=== PATIENT | female | born 1950 | race Caucasian/White ===

== ENCOUNTER 2019-05-23 19:15 | Observation (INO) ==
[2019-05-23] MEDS ORDERED: MORPHINE 4 MG/1 ML VIAL IV ONE (22:59)
[2019-05-23] MEDS ORDERED: diphenhydrAMINE CAP 25 MG CAPSULE PO PRN (23:25)
[2019-05-23] MEDS ORDERED: guaiFENesin/DM ER 600-30 MG TABLET PO PRN (23:25)
[2019-05-23] MEDS ORDERED: ONDANSETRON 4 MG/2 ML VIAL IV PRN (23:25)
[2019-05-23] MEDS ORDERED: ALBUTEROL/IPRATROPIUM 3 ML NEB RESP TX PRN (23:25)
[2019-05-23] MEDS ORDERED: NICOTINE 21 MG/24 HR PATCH TRANSDERM PRN (23:25)
[2019-05-23] MEDS ORDERED: ACETAMINOPHEN 325 MG TABLET PO PRN (23:25)
[2019-05-23] MEDS ORDERED: metOLazone 5 MG TABLET PO ONE (23:28)
[2019-05-23 23:52] LABS: Basophils % 0.4 % (0.0-0.8); Eosinophils # 0.1 10*3/uL (0.0-0.87); Eosinophils % 1.7 % (0.00-10.9); Hematocrit 34.7 VOL% (35.7-47.0); Hemoglobin 10.9 GM/DL (12.0-16.0); Immature Granulocytes % 0.5 %; Immature Granulocytes Absolute 0.04 #; Lymphocytes # 0.9 10*3/uL (1.4-4.0); Lymphocytes % 10.9 % (21.3-54.2); Mean Corpuscular HGB Conc 31.4 GM/DL (32-36); Mean Corpuscular Volume 92.5 FL (87-102); Mean Platelet Volume 11.4 FL (9.6-12.0); Monocytes % 6.4 % (1.7-12.7); Neutrophils % 80.1 % (38.7-73.9); Platelet Count 117 T/CUMM (130-400); Red Blood Count 3.75 MC/CUMM (3.8-5.5); Red Cell Distribution Width 14.4 % (9.3-17.3); White Blood Count 8.3 T/CUMM (4-12)
[2019-05-24 00:02] LABS: INR 1.2; PT Patient Result 12.6 SECS (9.6-12.2); Partial Thromboplastin Time 27.8 SECS (20.8-36.0)
[2019-05-24] MEDS ORDERED: FUROSEMIDE 40 MG/4 ML VIAL IV ONE (00:04)
[2019-05-24 00:14] LABS: Albumin 3.6 G/DL (3.4-5.0); Bilirubin,Total 0.5 MG/DL (0.2-1.0); Calcium 7.7 MG/DL (8.5-10.1); Osmolality,Calculated 286.8 MOS/KG (273-304); Risk Ratio 3.03; Total Protein 6.6 G/DL (6.4-8.3); VLDL CHOLESTEROL 21.4 MG/DL
[2019-05-24] MEDS ORDERED: DEXTROSE 50% 25 GM/50 ML VIAL IV PRN (00:29)
[2019-05-24] MEDS ORDERED: GLUCAGON 1 MG VIAL IM PRN (00:29)
[2019-05-24] MEDS: MORPHINE 4 MG/1 ML VIAL IV PRN ×3 (01:22→10:15)
[2019-05-24 04:32] LABS: INR 1.1; PT Patient Result 12.4 SECS (9.6-12.2)
[2019-05-24 08:15] LABS: Apearance,Urine Cloudy (Clear); Bacteria,Urine Few /HPF (Few); Bilirubin,Urine Negative (Negative); Blood, Urine NEGATIVE (Negative); Glucose,Urine (UA) 500 mg/dL (Negative); Ketones,Urine Negative (Negative); Nitrite,Urine Negative (Negative); Protein,Urine >=500 MG/DL; RBC,Urine 13 /HPF (0-4); Squamous Epithelial Cell,Urine Many /HPF (0-10); Urine Color Yellow (Yellow); WBC,Urine 51 /HPF (0-6)
[2019-05-24 08:16] LABS: Urine Urobilinogen 0.2 EU/DL (0.2-1.0)
[2019-05-24] MEDS ORDERED: Ferric Citrate [Auryxia] 210 MG PO SCH (09:00)
[2019-05-24] MEDS ORDERED: glipiZIDE 10 MG TABLET PO SCH (09:00)
[2019-05-24] MEDS: INSULIN LISPRO 100 UNIT/ML SUBCUT SCH ×3 (13:28→21:36)
[2019-05-24] MEDS: carvediloL 25 MG TABLET PO SCH ×2 (13:29→16:41)
[2019-05-24] MEDS: ASPIRIN EC 81 MG TABLET PO SCH (15:23)
[2019-05-24] MEDS: CITALOPRAM 20 MG TABLET PO SCH (15:23)
[2019-05-24] MEDS: WARFARIN 5 MG TABLET PO SCH (15:24)
[2019-05-24] MEDS: amLODIPine 10 MG TABLET PO SCH (15:24)
[2019-05-24] MEDS: LOSARTAN 50 MG TABLET PO SCH (15:25)
[2019-05-24] MEDS: NYSTATIN CREAM 15 GM TUBE TOP SCH ×2 (15:27→21:32)
[2019-05-24] MEDS ORDERED: SIMVASTATIN 40 MG TABLET PO SCH (21:00)
[2019-05-24] MEDS: CIPROFLOXACIN 250 MG TABLET PO SCH (21:32)
[2019-05-25] MEDS: INSULIN LISPRO 100 UNIT/ML SUBCUT SCH ×3 (08:34→17:05)
[2019-05-25] MEDS: carvediloL 25 MG TABLET PO SCH ×2 (09:38→17:06)
[2019-05-25] MEDS: CITALOPRAM 20 MG TABLET PO SCH (09:39)
[2019-05-25] MEDS: amLODIPine 10 MG TABLET PO SCH (09:39)
[2019-05-25] MEDS: LOSARTAN 50 MG TABLET PO SCH (09:39)
[2019-05-25] MEDS: ASPIRIN EC 81 MG TABLET PO SCH (09:39)
[2019-05-25] MEDS: WARFARIN 5 MG TABLET PO SCH (09:39)
[2019-05-25] MEDS: NYSTATIN CREAM 15 GM TUBE TOP SCH (09:56)
[2019-05-25 16:09] VITALS: BP 135/74
[2019-05-25] MEDS: CIPROFLOXACIN 250 MG TABLET PO SCH (17:05)
== END 2019-05-25 17:26 | disposition home or self-care (01) ==
LOC: N.TELEN
PROVIDERS: ADMIT Internal Medicine; ATTEND Emergency Medicine

== ENCOUNTER 2019-08-24 12:13 | Inpatient (IN) ==
[2019-08-24 13:20] LABS: Basophils % 0.5 % (0.0-0.8); Eosinophils # 0.1 10*3/uL (0.0-0.87); Hematocrit 33.8 VOL% (35.7-47.0); Hemoglobin 11.1 GM/DL (12.0-16.0); Immature Granulocytes Absolute 0.08 #; Lymphocytes # 0.4 10*3/uL (1.4-4.0); Lymphocytes % 5.3 % (21.3-54.2); Mean Corpuscular HGB Conc 32.8 GM/DL (32-36); Mean Corpuscular Volume 93.9 FL (87-102); Mean Platelet Volume 10.5 FL (9.6-12.0); Neutrophils % 80.2 % (38.7-73.9); Platelet Count 127 T/CUMM (130-400); Red Cell Distribution Width 15.4 % (9.3-17.3); White Blood Count 7.8 T/CUMM (4-12)
[2019-08-24 13:30] LABS: INR 1.5; PT Patient Result 15.9 SECS (9.6-12.2); Partial Thromboplastin Time 31.3 SECS (20.8-36.0)
[2019-08-24 13:41] LABS: Albumin 3.4 G/DL (3.4-5.0); Bilirubin,Total 0.5 MG/DL (0.2-1.0); Calcium 8.4 MG/DL (8.5-10.1); Osmolality,Calculated 280.7 MOS/KG (273-304); Total Protein 7.1 G/DL (6.4-8.3)
[2019-08-24] MEDS ORDERED: cefTRIAXone 1,000 MG in SODIUM CHLORIDE 0.9% 100 ML IV STA (14:19)
[2019-08-24] MEDS ORDERED: GLUCAGON 1 MG VIAL IM PRN (15:25)
[2019-08-24] MEDS ORDERED: DEXTROSE 50% 25 GM/50 ML VIAL IV PRN (15:25)
[2019-08-24] MEDS ORDERED: BISACODYL 5 MG TABLET PO PRN (15:25)
[2019-08-24] MEDS ORDERED: guaiFENesin/DM ER 600-30 MG TABLET PO PRN (15:25)
[2019-08-24] MEDS ORDERED: BENZONATATE 100 MG CAPSULE PO PRN (15:30)
[2019-08-24] MEDS ORDERED: HEPARIN 5,000 UNIT/1 ML VIAL SUBCUT SCH (15:30)
[2019-08-24] MEDS ORDERED: ALBUTEROL 2.5 MG/3 ML NEB RESP TX PRN (15:40)
[2019-08-24] MEDS: ACETAMINOPHEN 325 MG TABLET PO PRN (16:24)
[2019-08-24] MEDS ORDERED: cefTRIAXone 1,000 MG in SYRINGE 1 EACH IV SCH (16:30)
[2019-08-24] MEDS: INSULIN LISPRO 100 UNIT/ML SUBCUT SCH ×2 (18:50→20:23)
[2019-08-24] MEDS: carvediloL 25 MG TABLET PO SCH (18:50)
[2019-08-24] MEDS: AZITHROMYCIN INJ 500 MG in SODIUM CHLORIDE 0.9% 250 ML IV SCH (18:51)
[2019-08-24] MEDS: OSELTAMIVIR 30 MG CAPSULE PO SCH (20:23)
[2019-08-24] MEDS: ATORVASTATIN 40 MG TABLET PO SCH (20:23)
[2019-08-25 05:47] LABS: INR 1.3; PT Patient Result 13.6 SECS (9.6-12.2)
[2019-08-25 05:56] LABS: Calcium 7.8 MG/DL (8.5-10.1)
[2019-08-25] MEDS: CITALOPRAM 20 MG TABLET PO SCH (08:09)
[2019-08-25] MEDS: LOSARTAN 50 MG TABLET PO SCH (08:09)
[2019-08-25] MEDS: carvediloL 25 MG TABLET PO SCH ×2 (08:09→16:41)
[2019-08-25] MEDS: amLODIPine 10 MG TABLET PO SCH (08:10)
[2019-08-25] MEDS: PANTOPRAZOLE 40 MG TABLET PO SCH (08:10)
[2019-08-25] MEDS: ASPIRIN EC 81 MG TABLET PO SCH (08:10)
[2019-08-25] MEDS ORDERED: WARFARIN 5 MG TABLET PO SCH (09:00)
[2019-08-25] MEDS ORDERED: OSELTAMIVIR 30 MG CAPSULE PO ONE (09:30)
[2019-08-25] MEDS: INSULIN LISPRO 100 UNIT/ML SUBCUT SCH ×4 (09:32→20:45)
[2019-08-25] MEDS: OSELTAMIVIR 30 MG CAPSULE PO SCH (09:33)
[2019-08-25] MEDS: LIDOCAINE 5% PATCH TRANSDERM SCH (11:46)
[2019-08-25] MEDS ORDERED: cefTRIAXone 1,000 MG in SYRINGE 1 EACH IV SCH (16:00)
[2019-08-25] MEDS: AZITHROMYCIN INJ 500 MG in SODIUM CHLORIDE 0.9% 250 ML IV SCH (17:51)
[2019-08-25] MEDS: WARFARIN 7.5 MG TABLET PO SCH (17:52)
[2019-08-25] MEDS: ATORVASTATIN 40 MG TABLET PO SCH (20:45)
[2019-08-26] MEDS: ONDANSETRON 4 MG/2 ML VIAL IV PRN ×2 (04:32→12:35)
[2019-08-26 05:09] LABS: Basophils % 0.6 % (0.0-0.8); Eosinophils % 0.7 % (0.00-10.9); Hematocrit 34.4 VOL% (35.7-47.0); Immature Granulocytes % 0.9 %; Immature Granulocytes Absolute 0.05 #; Lymphocytes # 0.9 10*3/uL (1.4-4.0); Lymphocytes % 16.5 % (21.3-54.2); Mean Corpuscular Volume 96.9 FL (87-102); Mean Platelet Volume 10.6 FL (9.6-12.0); Monocytes % 11.7 % (1.7-12.7); Neutrophils % 69.6 % (38.7-73.9); Platelet Count 104 T/CUMM (130-400); Red Blood Count 3.55 MC/CUMM (3.8-5.5); Red Cell Distribution Width 15.6 % (9.3-17.3); White Blood Count 5.5 T/CUMM (4-12)
[2019-08-26 05:34] LABS: INR 1.3; PT Patient Result 13.9 SECS (9.6-12.2)
[2019-08-26 05:43] LABS: Calcium 7.8 MG/DL (8.5-10.1)
[2019-08-26] MEDS: CITALOPRAM 20 MG TABLET PO SCH (09:31)
[2019-08-26] MEDS: carvediloL 25 MG TABLET PO SCH ×2 (09:31→17:21)
[2019-08-26] MEDS: PANTOPRAZOLE 40 MG TABLET PO SCH (09:31)
[2019-08-26] MEDS: ASPIRIN EC 81 MG TABLET PO SCH (09:31)
[2019-08-26] MEDS: amLODIPine 10 MG TABLET PO SCH (09:31)
[2019-08-26] MEDS: LOSARTAN 50 MG TABLET PO SCH (09:31)
[2019-08-26] MEDS: LIDOCAINE 5% PATCH TRANSDERM SCH (09:32)
[2019-08-26] MEDS: INSULIN LISPRO 100 UNIT/ML SUBCUT SCH ×4 (09:34→20:55)
[2019-08-26] MEDS ORDERED: LEVOFLOXACIN INJ 500 MG in PREMIX 1 EACH IV SCH (11:30)
[2019-08-26] MEDS ORDERED: hydrALAZINE 20 MG/1 ML VIAL IV PRN (12:17)
[2019-08-26] MEDS: ACETAMINOPHEN 325 MG TABLET PO PRN ×2 (15:50→20:58)
[2019-08-26] MEDS: WARFARIN 7.5 MG TABLET PO SCH (17:21)
[2019-08-26] MEDS ORDERED: WARFARIN 5 MG TABLET PO ONE (18:00)
[2019-08-26] MEDS: ATORVASTATIN 40 MG TABLET PO SCH (20:56)
[2019-08-27] MEDS: LOSARTAN 50 MG TABLET PO SCH (08:19)
[2019-08-27] MEDS: PANTOPRAZOLE 40 MG TABLET PO SCH (08:19)
[2019-08-27] MEDS: ASPIRIN EC 81 MG TABLET PO SCH (08:20)
[2019-08-27] MEDS: LIDOCAINE 5% PATCH TRANSDERM SCH (08:20)
[2019-08-27] MEDS: carvediloL 25 MG TABLET PO SCH ×2 (08:20→17:00)
[2019-08-27] MEDS: CITALOPRAM 20 MG TABLET PO SCH (08:20)
[2019-08-27] MEDS: amLODIPine 10 MG TABLET PO SCH (08:20)
[2019-08-27] MEDS: INSULIN LISPRO 100 UNIT/ML SUBCUT SCH ×4 (08:22→20:41)
[2019-08-27 08:45] LABS: Calcium 7.2 MG/DL (8.5-10.1); Osmolality,Calculated 284.1 MOS/KG (273-304)
[2019-08-27 08:46] LABS: INR 2.3
[2019-08-27 08:50] LABS: PT Patient Result 24.4 SECS (9.6-12.2)
[2019-08-27] MEDS: LOPERAMIDE 2 MG CAPSULE PO PRN ×2 (11:58→19:49)
[2019-08-27] MEDS: WARFARIN 7.5 MG TABLET PO SCH (17:00)
[2019-08-27] MEDS: ATORVASTATIN 40 MG TABLET PO SCH (20:42)
[2019-08-28] MEDS: LOPERAMIDE 2 MG CAPSULE PO PRN ×2 (03:56→20:39)
[2019-08-28 05:23] LABS: Basophils % 0.2 % (0.0-0.8); Eosinophils # 0.2 10*3/uL (0.0-0.87); Eosinophils % 3.1 % (0.00-10.9); Hematocrit 30.9 VOL% (35.7-47.0); Hemoglobin 10.3 GM/DL (12.0-16.0); Immature Granulocytes % 0.8 %; Immature Granulocytes Absolute 0.04 #; Lymphocytes # 0.7 10*3/uL (1.4-4.0); Lymphocytes % 14.9 % (21.3-54.2); Mean Corpuscular HGB Conc 33.3 GM/DL (32-36); Mean Corpuscular Volume 93.9 FL (87-102); Mean Platelet Volume 10.9 FL (9.6-12.0); Monocytes % 8.2 % (1.7-12.7); Neutrophils % 72.8 % (38.7-73.9); Platelet Count 92 T/CUMM (130-400); Red Blood Count 3.29 MC/CUMM (3.8-5.5); Red Cell Distribution Width 15.4 % (9.3-17.3); White Blood Count 4.8 T/CUMM (4-12)
[2019-08-28 05:33] LABS: INR 2.9
[2019-08-28 05:39] LABS: PT Patient Result 30.8 SECS (9.6-12.2)
[2019-08-28 05:54] LABS: Calcium 6.7 MG/DL (8.5-10.1); Osmolality,Calculated 289.1 MOS/KG (273-304)
[2019-08-28] MEDS: INSULIN LISPRO 100 UNIT/ML SUBCUT SCH ×4 (07:25→20:39)
[2019-08-28] MEDS: amLODIPine 10 MG TABLET PO SCH (08:17)
[2019-08-28] MEDS: PANTOPRAZOLE 40 MG TABLET PO SCH (08:17)
[2019-08-28] MEDS: CITALOPRAM 20 MG TABLET PO SCH (08:17)
[2019-08-28] MEDS: ASPIRIN EC 81 MG TABLET PO SCH (08:17)
[2019-08-28] MEDS: LOSARTAN 50 MG TABLET PO SCH (08:17)
[2019-08-28] MEDS: carvediloL 25 MG TABLET PO SCH ×2 (08:18→17:04)
[2019-08-28] MEDS: LIDOCAINE 5% PATCH TRANSDERM SCH (08:19)
[2019-08-28] MEDS ORDERED: LEVOFLOXACIN 500 MG TABLET PO SCH (09:00)
[2019-08-28] MEDS ORDERED: TUBERCULIN SKIN TEST 0.1 ML SYRINGE INTRADERM ONE (12:00)
[2019-08-28] MEDS: WARFARIN 5 MG TABLET PO SCH ×2 (13:53→17:04)
[2019-08-28] MEDS: WARFARIN 7.5 MG TABLET PO SCH (13:53)
[2019-08-28] MEDS ORDERED: OSELTAMIVIR 30 MG CAPSULE PO ONE (17:00)
[2019-08-28] MEDS: ATORVASTATIN 40 MG TABLET PO SCH (20:39)
[2019-08-29 07:22] VITALS: BP 171/53
[2019-08-29] MEDS: CITALOPRAM 20 MG TABLET PO SCH (09:22)
[2019-08-29] MEDS: PANTOPRAZOLE 40 MG TABLET PO SCH (09:22)
[2019-08-29] MEDS: ASPIRIN EC 81 MG TABLET PO SCH (09:22)
[2019-08-29] MEDS: carvediloL 25 MG TABLET PO SCH (09:22)
[2019-08-29] MEDS: LOSARTAN 50 MG TABLET PO SCH (09:23)
[2019-08-29] MEDS: amLODIPine 10 MG TABLET PO SCH (09:23)
[2019-08-29] MEDS: LIDOCAINE 5% PATCH TRANSDERM SCH (09:24)
[2019-08-29] MEDS: INSULIN LISPRO 100 UNIT/ML SUBCUT SCH ×2 (09:50→11:27)
== END 2019-08-29 11:40 | disposition swing bed (61) | DRG 864 ==
LOC: N.ED 12:13 → N.EDINP 12:13 → N.2E 17:13
PROVIDERS: ADMIT Internal Medicine; ATTEND Internal Medicine

== ENCOUNTER 2019-11-28 12:31 | Inpatient (IN) ==
[2019-11-28] MEDS ORDERED: diphenhydrAMINE CAP 25 MG CAPSULE PO ONE (13:15)
[2019-11-28] MEDS ORDERED: VANCOMYCIN INJ 1,000 MG in SODIUM CHLORIDE 0.9% 250 ML IV ONE (13:15)
[2019-11-28] MEDS ORDERED: VANCOMYCIN 500 MG VIAL IRRIG ONE (13:15)
[2019-11-28] MEDS ORDERED: DIAZEPAM 5 MG TABLET PO ONE (13:15)
[2019-11-28 13:17] LABS: Basophils % 0.4 % (0.0-0.8); Eosinophils # 0.2 10*3/uL (0.0-0.87); Eosinophils % 2.1 % (0.00-10.9); Hematocrit 38.1 VOL% (35.7-47.0); Hemoglobin 12.4 GM/DL (12.0-16.0); Immature Granulocytes % 0.3 %; Immature Granulocytes Absolute 0.02 #; Lymphocytes # 1.1 10*3/uL (1.4-4.0); Lymphocytes % 14.1 % (21.3-54.2); Mean Corpuscular HGB Conc 32.5 GM/DL (32-36); Mean Corpuscular Volume 94.5 FL (87-102); Mean Platelet Volume 11.7 FL (9.6-12.0); Monocytes % 8.4 % (1.7-12.7); Neutrophils % 74.7 % (38.7-73.9); Platelet Count 113 T/CUMM (130-400); Red Blood Count 4.03 MC/CUMM (3.8-5.5); Red Cell Distribution Width 14.4 % (9.3-17.3); White Blood Count 7.8 T/CUMM (4-12)
[2019-11-28 13:30] LABS: PT Patient Result 50.9 SECS (9.8-11.9); Partial Thromboplastin Time 46.9 SECS (23.9-33.8)
[2019-11-28 13:33] LABS: INR 5.2
[2019-11-28] MEDS ORDERED: LIDOCAINE 1% 20 ML VIAL ONE (13:37)
[2019-11-28] MEDS ORDERED: HEPARIN/NACL 0.9% 2 UNITS/ML 1,000 ML IV ONE (13:37)
[2019-11-28] MEDS ORDERED: fentaNYL 100 MCG/2 ML VIAL ONE (13:47)
[2019-11-28] MEDS ORDERED: MIDAZOLAM 2 MG/2 ML VIAL ONE (13:47)
[2019-11-28 13:48] LABS: Albumin 3.9 G/DL (3.4-5.0); Bilirubin,Total 0.4 MG/DL (0.2-1.0); Calcium 9.4 MG/DL (8.5-10.1); Osmolality,Calculated 285.1 MOS/KG (273-304)
[2019-11-28 13:56] LABS: Troponin I 0.065 NG/ML (0.00-0.045)
[2019-11-28] MEDS ORDERED: ONDANSETRON 4 MG/2 ML VIAL IV PRN (14:24)
[2019-11-28] MEDS ORDERED: ZALEPLON 5 MG CAPSULE PO PRN (14:24)
[2019-11-28] MEDS ORDERED: SODIUM CHLORIDE 0.9% 1,000 ML IV PRN (14:27)
[2019-11-28] MEDS ORDERED: LOPERAMIDE 2 MG CAPSULE PO PRN (14:34)
[2019-11-28] MEDS ORDERED: ACETAMINOPHEN 325 MG TABLET PO PRN (14:34)
[2019-11-28] MEDS ORDERED: BISACODYL 5 MG TABLET PO PRN (14:34)
[2019-11-28] MEDS ORDERED: GLUCAGON 1 MG VIAL IM PRN (14:35)
[2019-11-28] MEDS ORDERED: DEXTROSE 10% 250 ML BAG IV PRN (14:35)
[2019-11-28] MEDS: hydrALAZINE 20 MG/1 ML VIAL IV PRN (15:17)
[2019-11-28] MEDS: INSULIN REGULAR 100 UNIT/ML SUBCUT SCH ×2 (16:37→21:45)
[2019-11-28] MEDS: MORPHINE 4 MG/1 ML VIAL IV PRN ×4 (17:37→23:20)
[2019-11-28] MEDS ORDERED: NON-FORMULARY MEDICATION (Ferric Citrate [Auryxia] 420 MG) PO SCH (18:00)
[2019-11-28] MEDS ORDERED: hydrALAZINE 20 MG/1 ML VIAL IV ONE (18:43)
[2019-11-28] MEDS ORDERED: CYCLOBENZAPRINE 10 MG TABLET PO PRN (19:20)
[2019-11-28] MEDS: LIDOCAINE 5% PATCH TRANSDERM SCH (21:26)
[2019-11-28] MEDS: ATORVASTATIN 40 MG TABLET PO SCH (21:45)
[2019-11-28] MEDS: ASPIRIN EC 81 MG TABLET PO SCH (21:45)
[2019-11-29] MEDS: hydrALAZINE 20 MG/1 ML VIAL IV PRN ×2 (00:05→05:10)
[2019-11-29] MEDS: MORPHINE 4 MG/1 ML VIAL IV PRN (04:35)
[2019-11-29] MEDS ORDERED: diphenhydrAMINE CAP 25 MG CAPSULE PO ONE ×2 (06:00→07:05)
[2019-11-29] MEDS ORDERED: DIAZEPAM 5 MG TABLET PO ONE ×2 (06:00→07:05)
[2019-11-29 06:56] LABS: Basophils % 0.4 % (0.0-0.8); Eosinophils # 0.2 10*3/uL (0.0-0.87); Eosinophils % 1.9 % (0.00-10.9); Hematocrit 37.8 VOL% (35.7-47.0); Hemoglobin 11.6 GM/DL (12.0-16.0); Immature Granulocytes % 0.4 %; Immature Granulocytes Absolute 0.04 #; Lymphocytes # 0.7 10*3/uL (1.4-4.0); Lymphocytes % 6.9 % (21.3-54.2); Mean Corpuscular HGB Conc 30.7 GM/DL (32-36); Mean Corpuscular Volume 99.5 FL (87-102); Mean Platelet Volume 11.2 FL (9.6-12.0); Monocytes % 7.7 % (1.7-12.7); Neutrophils % 82.7 % (38.7-73.9); Platelet Count 122 T/CUMM (130-400); Red Cell Distribution Width 14.6 % (9.3-17.3); White Blood Count 9.7 T/CUMM (4-12)
[2019-11-29 07:05] LABS: INR 3.1
[2019-11-29] MEDS ORDERED: VANCOMYCIN 500 MG VIAL IRRIG ONE (07:05)
[2019-11-29] MEDS ORDERED: VANCOMYCIN INJ 1,000 MG in SODIUM CHLORIDE 0.9% 250 ML IV ONE (07:05)
[2019-11-29 07:09] LABS: PT Patient Result 31.7 SECS (9.8-11.9)
[2019-11-29] MEDS ORDERED: NON-FORMULARY MEDICATION (Ferric Citrate [Auryxia] 210 MG) PO SCH (08:00)
[2019-11-29] MEDS ORDERED: HEPARIN/NACL 0.9% 2 UNITS/ML 500 ML IV ONE (08:06)
[2019-11-29] MEDS ORDERED: LIDOCAINE 1% 20 ML VIAL ONE (08:06)
[2019-11-29] MEDS ORDERED: TISSUE ADHESIVE 1 EACH APPLICATOR TOP ONE (08:06)
[2019-11-29] MEDS ORDERED: ceFAZolin 1,000 MG VIAL ONE (08:06)
[2019-11-29] MEDS ORDERED: VANCOMYCIN 500 MG VIAL ONE (08:19)
[2019-11-29 08:58] LABS: Osmolality,Calculated 285.8 MOS/KG (273-304)
[2019-11-29] MEDS: INSULIN REGULAR 100 UNIT/ML SUBCUT SCH ×4 (10:37→22:03)
[2019-11-29] MEDS: carvediloL 6.25 MG TABLET PO SCH ×2 (12:46→22:04)
[2019-11-29] MEDS: CITALOPRAM 20 MG TABLET PO SCH (12:46)
[2019-11-29] MEDS: LIDOCAINE 5% PATCH TRANSDERM SCH (12:46)
[2019-11-29] MEDS: amLODIPine 10 MG TABLET PO SCH (12:47)
[2019-11-29] MEDS: LOSARTAN 50 MG TABLET PO SCH (12:47)
[2019-11-29] MEDS: ASPIRIN EC 81 MG TABLET PO SCH (22:04)
[2019-11-29] MEDS: ATORVASTATIN 40 MG TABLET PO SCH (22:04)
[2019-11-30 06:50] LABS: Basophils % 0.3 % (0.0-0.8); Eosinophils # 0.2 10*3/uL (0.0-0.87); Hematocrit 35.1 VOL% (35.7-47.0); Immature Granulocytes % 0.3 %; Immature Granulocytes Absolute 0.02 #; Lymphocytes # 0.9 10*3/uL (1.4-4.0); Lymphocytes % 12.4 % (21.3-54.2); Mean Corpuscular HGB Conc 31.3 GM/DL (32-36); Mean Corpuscular Volume 96.4 FL (87-102); Mean Platelet Volume 11.6 FL (9.6-12.0); Monocytes % 10.4 % (1.7-12.7); Neutrophils % 73.6 % (38.7-73.9); Platelet Count 108 T/CUMM (130-400); Red Blood Count 3.64 MC/CUMM (3.8-5.5); Red Cell Distribution Width 14.6 % (9.3-17.3); White Blood Count 6.9 T/CUMM (4-12)
[2019-11-30 07:01] LABS: INR 2.1
[2019-11-30 07:14] LABS: Calcium 8.6 MG/DL (8.5-10.1)
[2019-11-30 07:19] LABS: PT Patient Result 21.8 SECS (9.8-11.9)
[2019-11-30] MEDS: INSULIN REGULAR 100 UNIT/ML SUBCUT SCH ×2 (07:42→10:51)
[2019-11-30 08:09] VITALS: BP 167/69
[2019-11-30] MEDS: CITALOPRAM 20 MG TABLET PO SCH (08:17)
[2019-11-30] MEDS: amLODIPine 10 MG TABLET PO SCH (08:17)
[2019-11-30] MEDS: LOSARTAN 50 MG TABLET PO SCH (08:17)
[2019-11-30] MEDS: carvediloL 6.25 MG TABLET PO SCH (08:17)
[2019-11-30] MEDS: LIDOCAINE 5% PATCH TRANSDERM SCH (08:17)
== END 2019-11-30 11:15 | disposition home or self-care (01) | DRG 242 ==
LOC: N.ED 12:31 → N.EDINP 13:15 → N.CLINP 13:23 → N.TELEN 11-29 10:07
PROVIDERS: ADMIT Internal Medicine Cardiovascular Disease; ATTEND Internal Medicine Cardiovascular Disease
PROC: CLCCHCL (ICD-10-PCS; 2019-11-28 14:15)

== ENCOUNTER 2021-01-21 21:24 | Observation (INO) ==
[2021-01-21] MEDS ORDERED: METOCLOPRAMIDE 10 MG/2 ML VIAL IV STA (23:05)
[2021-01-21] MEDS ORDERED: PANTOPRAZOLE 40 MG VIAL IV STA (23:05)
[2021-01-21] MEDS ORDERED: SODIUM CHLORIDE 0.9% 500 ML IV STA (23:05)
[2021-01-21 23:15] LABS: Basophils % 0.3 % (0.0-0.8); Eosinophils # 0.1 10*3/uL (0.0-0.87); Eosinophils % 0.9 % (0.00-10.9); Hemoglobin 13.2 GM/DL (12.0-16.0); Immature Granulocytes % 0.5 %; Immature Granulocytes Absolute 0.04 #; Lymphocytes # 0.9 10*3/uL (1.4-4.0); Lymphocytes % 12.2 % (21.3-54.2); Mean Corpuscular HGB Conc 31.4 GM/DL (32-36); Mean Corpuscular Volume 90.1 FL (87-102); Mean Platelet Volume 12.3 FL (9.6-12.0); Monocytes % 8.1 % (1.7-12.7); Platelet Count 100 T/CUMM (130-400); Red Blood Count 4.66 MC/CUMM (3.8-5.5); Red Cell Distribution Width 14.5 % (9.3-17.3); White Blood Count 7.4 T/CUMM (4-12)
[2021-01-21 23:44] LABS: Albumin 4.2 G/DL (3.4-5.0); Bilirubin,Total 0.5 MG/DL (0.2-1.0); Calcium 8.8 MG/DL (8.5-10.1); Osmolality,Calculated 285.5 MOS/KG (273-304); Potassium 3.9 MMOL/L (3.5-5.1); Total Protein 6.8 G/DL (6.4-8.2)
[2021-01-22] MEDS ORDERED: PIPERACILLIN/TAZOBACTAM 2,250 MG in SODIUM CHLORIDE 0.9% 100 ML IV STA (01:10)
[2021-01-22] MEDS ORDERED: hydrALAZINE 20 MG/1 ML VIAL IV STA (02:38)
[2021-01-22] MEDS ORDERED: GLUCAGON 1 MG VIAL IM PRN (03:04)
[2021-01-22] MEDS ORDERED: ONDANSETRON 4 MG/2 ML VIAL IV PRN (03:04)
[2021-01-22] MEDS ORDERED: DEXTROSE 50% 25 GM/50 ML VIAL IV PRN (03:04)
[2021-01-22] MEDS ORDERED: ACETAMINOPHEN 325 MG TABLET PO PRN (03:04)
[2021-01-22] MEDS: MORPHINE 4 MG/1 ML VIAL IV PRN (04:29)
[2021-01-22] MEDS: SODIUM CHLORIDE 0.9% 1,000 ML IV SCH (04:31)
[2021-01-22 04:51] LABS: Basophils % 0.3 % (0.0-0.8); Eosinophils # 0.1 10*3/uL (0.0-0.87); Eosinophils % 0.9 % (0.00-10.9); Hematocrit 40.3 VOL% (35.7-47.0); Hemoglobin 13.1 GM/DL (12.0-16.0); Immature Granulocytes % 0.9 %; Immature Granulocytes Absolute 0.05 #; Lymphocytes % 16.6 % (21.3-54.2); Mean Corpuscular HGB Conc 32.5 GM/DL (32-36); Mean Corpuscular Volume 89.4 FL (87-102); Mean Platelet Volume 12.1 FL (9.6-12.0); Monocytes % 9.6 % (1.7-12.7); Neutrophils % 71.7 % (38.7-73.9); Platelet Count 104 T/CUMM (130-400); Red Blood Count 4.51 MC/CUMM (3.8-5.5); Red Cell Distribution Width 14.3 % (9.3-17.3); White Blood Count 5.7 T/CUMM (4-12)
[2021-01-22 05:36] LABS: Albumin 3.6 G/DL (3.4-5.0); Bilirubin,Total 0.6 MG/DL (0.2-1.0); Calcium 8.8 MG/DL (8.5-10.1); Potassium 3.9 MMOL/L (3.5-5.1); Total Protein 6.5 G/DL (6.4-8.2)
[2021-01-22] MEDS ORDERED: INSULIN REGULAR 100 UNIT/ML SUBCUT SCH (06:00)
[2021-01-22] MEDS: INSULIN REGULAR 100 UNIT/ML SUBCUT SCH ×4 (08:46→20:15)
[2021-01-22] MEDS ORDERED: traMADol 50 MG TABLET PO PRN (08:57)
[2021-01-22] MEDS ORDERED: INDOCYANINE GREEN 25 MG VIAL IV ONE (09:00)
[2021-01-22] MEDS: ASPIRIN EC 81 MG TABLET PO SCH (09:38)
[2021-01-22] MEDS: amLODIPine 10 MG TABLET PO SCH (09:38)
[2021-01-22] MEDS: buPROPion 75 MG TABLET PO SCH (09:38)
[2021-01-22] MEDS: cloNIDine 0.1 MG TABLET PO SCH ×2 (09:38→20:38)
[2021-01-22] MEDS: carvediloL 25 MG TABLET PO SCH ×2 (09:38→20:38)
[2021-01-22] MEDS: CITALOPRAM 20 MG TABLET PO SCH (09:38)
[2021-01-22] MEDS: PANTOPRAZOLE 40 MG VIAL IV SCH (09:38)
[2021-01-22] MEDS: ONDANSETRON ODT 4 MG TABLET PO SCH ×2 (11:27→17:50)
[2021-01-22] MEDS: ATORVASTATIN 40 MG TABLET PO SCH (20:38)
[2021-01-23] MEDS: ONDANSETRON ODT 4 MG TABLET PO SCH ×3 (01:57→17:04)
[2021-01-23 05:31] LABS: Basophils % 0.4 % (0.0-0.8); Eosinophils # 0.1 10*3/uL (0.0-0.87); Hematocrit 38.5 VOL% (35.7-47.0); Hemoglobin 11.6 GM/DL (12.0-16.0); Immature Granulocytes % 0.4 %; Immature Granulocytes Absolute 0.02 #; Lymphocytes # 0.6 10*3/uL (1.4-4.0); Lymphocytes % 12.7 % (21.3-54.2); Mean Corpuscular HGB Conc 30.1 GM/DL (32-36); Mean Corpuscular Volume 93.7 FL (87-102); Monocytes % 9.5 % (1.7-12.7); Red Blood Count 4.11 MC/CUMM (3.8-5.5); Red Cell Distribution Width 14.4 % (9.3-17.3); White Blood Count 5.1 T/CUMM (4-12)
[2021-01-23 05:41] LABS: Platelet Count 81 T/CUMM (130-400)
[2021-01-23 05:43] LABS: Calcium 8.7 MG/DL (8.5-10.1); Osmolality,Calculated 278.7 MOS/KG (273-304); Potassium 3.7 MMOL/L (3.5-5.1)
[2021-01-23 05:49] LABS: Hypochromasia 1+; Microcytosis 1+; Ovalocytes Slight; Platelet Estimate Decreased
[2021-01-23] MEDS ORDERED: INDOCYANINE GREEN 25 MG VIAL IV ONE (06:00)
[2021-01-23] MEDS ORDERED: fentaNYL 100 MCG/2 ML VIAL ONE (06:41)
[2021-01-23] MEDS ORDERED: MIDAZOLAM 2 MG/2 ML VIAL ONE (06:41)
[2021-01-23] MEDS ORDERED: BUPIVACAINE MPF 0.25% 30 ML VIAL ONE (06:49)
[2021-01-23] MEDS ORDERED: TISSUE ADHESIVE 1 EACH APPLICATOR TOP ONE (06:49)
[2021-01-23] MEDS ORDERED: LIDOCAINE 1%/EPI INJ 20 ML VIAL ONE (06:50)
[2021-01-23] MEDS ORDERED: SODIUM CHLORIDE 0.9% 250 ML IV SCH (07:00)
[2021-01-23] MEDS ORDERED: ONDANSETRON 4 MG/2 ML VIAL ONE (08:02)
[2021-01-23] MEDS ORDERED: ACETAMINOPHEN INJ 1,000 MG/100 ML VIAL IV ONE (08:02)
[2021-01-23] MEDS ORDERED: LIDOCAINE 2% 5 ML VIAL ONE (08:02)
[2021-01-23] MEDS ORDERED: DEXAMETHASONE 4 MG/1 ML VIAL ONE (08:02)
[2021-01-23] MEDS ORDERED: ROCURONIUM 50 MG/5 ML VIAL IV ONE (08:02)
[2021-01-23] MEDS ORDERED: ETOMIDATE 40 MG/20 ML VIAL IV ONE (08:02)
[2021-01-23] MEDS ORDERED: SEVOFLURANE 1 UNIT/15 MINUTE INH ONE (08:03)
[2021-01-23] MEDS ORDERED: SODIUM CHLORIDE 0.9% 250 ML IV ONE (08:03)
[2021-01-23] MEDS ORDERED: NEOSTIGMINE 10 MG/10 ML VIAL ONE (08:07)
[2021-01-23] MEDS ORDERED: GLYCOPYRROLATE 0.4 MG/2 ML VIAL ONE (08:07)
[2021-01-23] MEDS ORDERED: SUGAMMADEX 200 MG/2 ML VIAL IV ONE (08:30)
[2021-01-23] MEDS: SODIUM CHLORIDE 0.9% 1,000 ML IV SCH (10:03)
[2021-01-23] MEDS: INSULIN REGULAR 100 UNIT/ML SUBCUT SCH ×4 (10:04→20:19)
[2021-01-23] MEDS: cloNIDine 0.1 MG TABLET PO SCH ×2 (10:04→20:19)
[2021-01-23] MEDS: CITALOPRAM 20 MG TABLET PO SCH (10:05)
[2021-01-23] MEDS: ASPIRIN EC 81 MG TABLET PO SCH (10:05)
[2021-01-23] MEDS: amLODIPine 10 MG TABLET PO SCH (10:05)
[2021-01-23] MEDS: buPROPion 75 MG TABLET PO SCH (10:05)
[2021-01-23] MEDS: PANTOPRAZOLE 40 MG VIAL IV SCH (10:05)
[2021-01-23] MEDS: carvediloL 25 MG TABLET PO SCH ×2 (10:07→20:19)
[2021-01-23] MEDS: ATORVASTATIN 40 MG TABLET PO SCH (20:19)
[2021-01-24] MEDS: MORPHINE 4 MG/1 ML VIAL IV PRN (00:34)
[2021-01-24] MEDS: ONDANSETRON ODT 4 MG TABLET PO SCH ×2 (02:08→09:00)
[2021-01-24] MEDS: SODIUM CHLORIDE 0.9% 1,000 ML IV SCH (08:12)
[2021-01-24] MEDS: PANTOPRAZOLE 40 MG VIAL IV SCH (08:12)
[2021-01-24] MEDS: carvediloL 25 MG TABLET PO SCH (08:13)
[2021-01-24] MEDS: cloNIDine 0.1 MG TABLET PO SCH (08:13)
[2021-01-24] MEDS: amLODIPine 10 MG TABLET PO SCH (08:13)
[2021-01-24] MEDS: INSULIN REGULAR 100 UNIT/ML SUBCUT SCH ×2 (08:13→11:34)
[2021-01-24] MEDS: CITALOPRAM 20 MG TABLET PO SCH (08:13)
[2021-01-24] MEDS: ASPIRIN EC 81 MG TABLET PO SCH (08:13)
[2021-01-24] MEDS: buPROPion 75 MG TABLET PO SCH (08:14)
[2021-01-24 14:51] VITALS: BP 163/55
== END 2021-01-24 15:50 | disposition home or self-care (01) ==
LOC: N.ED 21:24 → N.EDINP 21:24 → N.3E 01-22 03:55
PROVIDERS: ADMIT Surgery; ATTEND Surgery

== ENCOUNTER 2021-07-16 20:12 | Inpatient (IN) ==
[2021-07-17 02:36] LABS: Basophils % 0.3 % (0.0-0.8); Hematocrit 34.5 VOL% (35.7-47.0); Hemoglobin 10.7 GM/DL (12.0-16.0); Immature Granulocytes % 0.6 %; Immature Granulocytes Absolute 0.04 #; Lymphocytes # 0.5 10*3/uL (1.4-4.0); Mean Corpuscular Volume 96.4 FL (87-102); Mean Platelet Volume 13.2 FL (9.6-12.0); Monocytes % 8.9 % (1.7-12.7); Neutrophils % 82.2 % (38.7-73.9); Platelet Count 76 T/CUMM (130-400); Red Blood Count 3.58 MC/CUMM (3.8-5.5); Red Cell Distribution Width 14.6 % (9.3-17.3); White Blood Count 6.7 T/CUMM (4-12)
[2021-07-17 02:47] LABS: Bilirubin,Urine Negative (Negative); Blood, Urine Moderate mg/dL (Negative); Glucose,Urine (UA) Negative (Negative); Ketones,Urine Negative (Negative); Nitrite,Urine Negative (Negative); Protein,Urine >=500 MG/DL; Urine Appearance CLOUDY (Clear); Urine Color Amber (Yellow); Urine Specific Gravity 1.013 (1.001-1.035); Urine Urobilinogen < 2.0 EU/DL (<2.0)
[2021-07-17] MEDS ORDERED: MEROPENEM 1,000 MG in SODIUM CHLORIDE 0.9% 100 ML IV ONE (02:49)
[2021-07-17 03:16] LABS: Albumin 3.7 G/DL (3.4-5.0); Bilirubin,Total 0.8 MG/DL (0.20-1.00); Calcium 7.9 MG/DL (8.5-10.1); Potassium 4.6 MMOL/L (3.5-5.1)
[2021-07-17] MEDS ORDERED: DEXTROSE 50% 25 GM/50 ML SYRINGE IV PRN (04:33)
[2021-07-17] MEDS ORDERED: hydrALAZINE 20 MG/1 ML VIAL IV PRN (04:33)
[2021-07-17] MEDS ORDERED: GLUCAGON 1 MG VIAL IM PRN (04:33)
[2021-07-17] MEDS ORDERED: ONDANSETRON 4 MG/2 ML VIAL IV PRN (04:33)
[2021-07-17] MEDS ORDERED: HYDROmorphone 2 MG/1 ML VIAL IV PRN (04:33)
[2021-07-17 05:23] LABS: Hepatitis B Core IgM Quant 0.16 Index; Hepatitis B Surface Ag Quant < 0.10 Index; Hepatitis B Surface Ag Result Non-Reactive (NonReactive); Hepatitis C Virus Ab Quant < 0.02 Index; Hepatitis C Virus Ab Result Non-Reactive (NonReactive)
[2021-07-17 06:28] LABS: Risk Ratio 2.24; Thyroid Stimulating Hormone 3.27 uIU/ml (0.358-3.74); VLDL Cholesterol 28.6 MG/DL
[2021-07-17] MEDS: cefTRIAXone 1,000 MG in SODIUM CHLORIDE 0.9% 100 ML IV SCH (09:30)
[2021-07-17] MEDS: PANTOPRAZOLE 40 MG TABLET PO SCH (09:30)
[2021-07-17] MEDS: INSULIN LISPRO 100 UNIT/ML SUBCUT SCH ×4 (09:35→20:16)
[2021-07-17] MEDS: MORPHINE 2 MG/1 ML SYRINGE IV PRN ×3 (10:32→20:41)
[2021-07-18 06:06] LABS: Basophils % 0.6 % (0.0-0.8); Eosinophils # 0.1 10*3/uL (0.0-0.87); Eosinophils % 1.1 % (0.00-10.9); Hematocrit 34.7 VOL% (35.7-47.0); Hemoglobin 10.9 GM/DL (12.0-16.0); Immature Granulocytes % 0.9 %; Immature Granulocytes Absolute 0.04 #; Lymphocytes # 0.6 10*3/uL (1.4-4.0); Lymphocytes % 12.2 % (21.3-54.2); Mean Corpuscular HGB Conc 31.4 GM/DL (32-36); Mean Corpuscular Volume 96.4 FL (87-102); Mean Platelet Volume 12.3 FL (9.6-12.0); Monocytes % 7.9 % (1.7-12.7); NRBC # 0.03 10*3/uL; Neutrophils % 77.3 % (38.7-73.9); Red Cell Distribution Width 14.6 % (9.3-17.3); White Blood Count 4.7 T/CUMM (4-12)
[2021-07-18 06:25] LABS: Albumin 3.2 G/DL (3.4-5.0); Bilirubin,Total 0.7 MG/DL (0.20-1.00); Calcium 7.4 MG/DL (8.5-10.1); Osmolality,Calculated 291.7 MOS/KG (273-304); Potassium 4.6 MMOL/L (3.5-5.1); Total Protein 5.7 G/DL (6.4-8.2)
[2021-07-18 06:53] LABS: Platelet Count 82 T/CUMM (130-400)
[2021-07-18 07:31] LABS: Ovalocytes Slight; Platelet Estimate Adequate; Polychromasia Slight
[2021-07-18] MEDS: INSULIN LISPRO 100 UNIT/ML SUBCUT SCH ×4 (08:16→21:08)
[2021-07-18] MEDS ORDERED: ATORVASTATIN 40 MG TABLET PO SCH (09:00)
[2021-07-18] MEDS: amLODIPine 10 MG TABLET PO SCH (12:39)
[2021-07-18] MEDS: LOSARTAN 50 MG TABLET PO SCH (12:39)
[2021-07-18] MEDS: cefTRIAXone 1,000 MG in SODIUM CHLORIDE 0.9% 100 ML IV SCH (12:39)
[2021-07-18] MEDS: PANTOPRAZOLE 40 MG TABLET PO SCH (12:39)
[2021-07-18] MEDS: CITALOPRAM 20 MG TABLET PO SCH (12:39)
[2021-07-18] MEDS: SEVELAMER CARBONATE POWDER 2.4 GM PACK PO SCH ×3 (12:40→21:07)
[2021-07-18] MEDS: MORPHINE 2 MG/1 ML SYRINGE IV PRN ×2 (16:38→21:55)
[2021-07-18] MEDS: buPROPion 75 MG TABLET PO SCH (18:08)
[2021-07-18] MEDS: ASPIRIN EC 81 MG TABLET PO SCH (18:52)
[2021-07-18] MEDS ORDERED: traZODone 50 MG TABLET PO SCH (21:00)
[2021-07-19 05:09] LABS: Basophils % 0.6 % (0.0-0.8); Eosinophils # 0.1 10*3/uL (0.0-0.87); Eosinophils % 1.4 % (0.00-10.9); Hematocrit 33.7 VOL% (35.7-47.0); Hemoglobin 10.3 GM/DL (12.0-16.0); Immature Granulocytes % 1.4 %; Immature Granulocytes Absolute 0.05 #; Lymphocytes # 0.7 10*3/uL (1.4-4.0); Lymphocytes % 19.6 % (21.3-54.2); Mean Corpuscular HGB Conc 30.6 GM/DL (32-36); Mean Corpuscular Volume 98.3 FL (87-102); Mean Platelet Volume 12.5 FL (9.6-12.0); Monocytes % 11.3 % (1.7-12.7); Neutrophils % 65.7 % (38.7-73.9); Platelet Count 68 T/CUMM (130-400); Red Blood Count 3.43 MC/CUMM (3.8-5.5); Red Cell Distribution Width 14.7 % (9.3-17.3); White Blood Count 3.6 T/CUMM (4-12)
[2021-07-19 05:32] LABS: Hypochromia Slight; Microcytosis Slight; Platelet Estimate Decreased
[2021-07-19 05:34] LABS: Albumin 2.6 G/DL (3.4-5.0); Bilirubin,Total 0.6 MG/DL (0.20-1.00); Calcium 7.9 MG/DL (8.5-10.1); Osmolality,Calculated 291.1 MOS/KG (273-304); Potassium 4.2 MMOL/L (3.5-5.1); Total Protein 5.4 G/DL (6.4-8.2)
[2021-07-19] MEDS: PANTOPRAZOLE 40 MG TABLET PO SCH (10:29)
[2021-07-19] MEDS: LOSARTAN 50 MG TABLET PO SCH (10:29)
[2021-07-19] MEDS: CITALOPRAM 20 MG TABLET PO SCH (10:30)
[2021-07-19] MEDS: cefTRIAXone 1,000 MG in SODIUM CHLORIDE 0.9% 100 ML IV SCH (10:30)
[2021-07-19] MEDS: SEVELAMER CARBONATE POWDER 2.4 GM PACK PO SCH ×3 (10:30→21:47)
[2021-07-19] MEDS: amLODIPine 10 MG TABLET PO SCH (10:30)
[2021-07-19] MEDS ORDERED: PHENOL 1.4% THROAT SPRAY 177 ML BOTTLE PO PRN (10:40)
[2021-07-19] MEDS: INSULIN LISPRO 100 UNIT/ML SUBCUT SCH ×3 (12:09→21:45)
[2021-07-19] MEDS: BENZONATATE 100 MG CAPSULE PO SCH ×2 (12:09→21:43)
[2021-07-19] MEDS ORDERED: AMPICILLIN INJ 500 MG in SODIUM CHLORIDE 0.9% 100 ML IV SCH (14:00)
[2021-07-19] MEDS: AMOXICILLIN 500 MG CAPSULE PO SCH ×2 (15:08→21:43)
[2021-07-19] MEDS: hydrALAZINE 25 MG TABLET PO SCH ×2 (15:08→21:43)
[2021-07-19] MEDS: ASPIRIN EC 81 MG TABLET PO SCH (18:09)
[2021-07-19] MEDS: buPROPion 75 MG TABLET PO SCH (18:09)
[2021-07-19] MEDS: MORPHINE 2 MG/1 ML SYRINGE IV PRN (18:33)
[2021-07-20 05:29] LABS: Basophils % 0.6 % (0.0-0.8); Eosinophils # 0.1 10*3/uL (0.0-0.87); Eosinophils % 2.6 % (0.00-10.9); Hematocrit 38.7 VOL% (35.7-47.0); Hemoglobin 11.9 GM/DL (12.0-16.0); Immature Granulocytes % 1.3 %; Immature Granulocytes Absolute 0.07 #; Lymphocytes # 0.8 10*3/uL (1.4-4.0); Lymphocytes % 14.7 % (21.3-54.2); Mean Corpuscular HGB Conc 30.7 GM/DL (32-36); Mean Corpuscular Volume 97.7 FL (87-102); Mean Platelet Volume 11.4 FL (9.6-12.0); Monocytes % 9.6 % (1.7-12.7); Neutrophils % 71.2 % (38.7-73.9); Red Blood Count 3.96 MC/CUMM (3.8-5.5); Red Cell Distribution Width 14.6 % (9.3-17.3); White Blood Count 5.3 T/CUMM (4-12)
[2021-07-20 05:53] LABS: Platelet Count 61 T/CUMM (130-400)
[2021-07-20 05:54] LABS: Albumin 3.1 G/DL (3.4-5.0); Bilirubin,Total 0.6 MG/DL (0.20-1.00); Calcium 7.8 MG/DL (8.5-10.1); Osmolality,Calculated 291.5 MOS/KG (273-304); Potassium 4.5 MMOL/L (3.5-5.1); Total Protein 5.9 G/DL (6.4-8.2)
[2021-07-20 05:57] LABS: Hypochromia Slight; Microcytosis Slight
[2021-07-20 05:58] LABS: Ovalocytes Slight; Platelet Estimate Decreased
[2021-07-20] MEDS ORDERED: CITALOPRAM 20 MG TABLET PO SCH (09:00)
[2021-07-20] MEDS: amLODIPine 10 MG TABLET PO SCH (09:08)
[2021-07-20] MEDS: AMOXICILLIN 500 MG CAPSULE PO SCH ×2 (09:08→20:03)
[2021-07-20] MEDS: SEVELAMER CARBONATE POWDER 2.4 GM PACK PO SCH ×3 (09:08→20:05)
[2021-07-20] MEDS: PANTOPRAZOLE 40 MG TABLET PO SCH (09:09)
[2021-07-20] MEDS: LOSARTAN 50 MG TABLET PO SCH (09:09)
[2021-07-20] MEDS: BENZONATATE 100 MG CAPSULE PO SCH ×2 (09:09→20:03)
[2021-07-20] MEDS: hydrALAZINE 25 MG TABLET PO SCH ×3 (09:09→20:03)
[2021-07-20] MEDS: INSULIN LISPRO 100 UNIT/ML SUBCUT SCH ×4 (09:09→20:05)
[2021-07-20] MEDS ORDERED: AZITHROMYCIN 250 MG TABLET PO ONE (11:20)
[2021-07-20] MEDS ORDERED: guaiFENesin 200 MG/10 ML UDCUP PO PRN (11:21)
[2021-07-20] MEDS: ALBUTEROL/IPRATROPIUM 3 ML NEB RESP TX SCH ×4 (12:30→22:57)
[2021-07-20] MEDS: CHOLECALCIFEROL 5,000 UNIT TABLET PO SCH (12:34)
[2021-07-20] MEDS: buPROPion 75 MG TABLET PO SCH (17:05)
[2021-07-20] MEDS: ASPIRIN EC 81 MG TABLET PO SCH (20:04)
[2021-07-20] MEDS: DOXYCYCLINE HYCLATE 100 MG CAPSULE PO SCH (20:13)
[2021-07-21] MEDS: ALBUTEROL/IPRATROPIUM 3 ML NEB RESP TX SCH ×7 (03:41→23:58)
[2021-07-21 06:14] LABS: Basophils % 0.4 % (0.0-0.8); Eosinophils # 0.1 10*3/uL (0.0-0.87); Eosinophils % 1.4 % (0.00-10.9); Hemoglobin 11.3 GM/DL (12.0-16.0); Immature Granulocytes % 1.2 %; Immature Granulocytes Absolute 0.07 #; Lymphocytes # 0.7 10*3/uL (1.4-4.0); Lymphocytes % 12.1 % (21.3-54.2); Mean Corpuscular HGB Conc 31.4 GM/DL (32-36); Mean Corpuscular Volume 96.3 FL (87-102); Mean Platelet Volume 11.7 FL (9.6-12.0); Monocytes % 9.8 % (1.7-12.7); Neutrophils % 75.1 % (38.7-73.9); Platelet Count 54 T/CUMM (130-400); Red Blood Count 3.74 MC/CUMM (3.8-5.5); Red Cell Distribution Width 14.6 % (9.3-17.3); White Blood Count 5.7 T/CUMM (4-12)
[2021-07-21 06:38] LABS: Platelet Estimate Decreased
[2021-07-21 06:48] LABS: Bilirubin,Total 0.6 MG/DL (0.20-1.00); Potassium 4.8 MMOL/L (3.5-5.1)
[2021-07-21] MEDS: INSULIN LISPRO 100 UNIT/ML SUBCUT SCH ×4 (07:52→20:51)
[2021-07-21] MEDS ORDERED: AZITHROMYCIN 250 MG TABLET PO SCH (09:00)
[2021-07-21] MEDS ORDERED: TUBERCULIN SKIN TEST 0.1 ML SYRINGE INTRADERM ONE (09:30)
[2021-07-21] MEDS: PANTOPRAZOLE 40 MG TABLET PO SCH (14:48)
[2021-07-21] MEDS: DOXYCYCLINE HYCLATE 100 MG CAPSULE PO SCH ×2 (14:48→20:50)
[2021-07-21] MEDS: CHOLECALCIFEROL 5,000 UNIT TABLET PO SCH (14:48)
[2021-07-21] MEDS: hydrALAZINE 25 MG TABLET PO SCH ×3 (14:48→20:50)
[2021-07-21] MEDS: SEVELAMER CARBONATE POWDER 2.4 GM PACK PO SCH ×3 (14:49→17:21)
[2021-07-21] MEDS: amLODIPine 10 MG TABLET PO SCH (14:49)
[2021-07-21] MEDS: AMOXICILLIN 500 MG CAPSULE PO SCH ×2 (14:49→20:50)
[2021-07-21] MEDS: BENZONATATE 100 MG CAPSULE PO SCH ×2 (14:49→20:50)
[2021-07-21] MEDS: LOSARTAN 50 MG TABLET PO SCH (14:49)
[2021-07-21] MEDS: buPROPion 75 MG TABLET PO SCH (17:21)
[2021-07-22] MEDS: ALBUTEROL/IPRATROPIUM 3 ML NEB RESP TX SCH ×6 (03:22→23:31)
[2021-07-22 05:23] LABS: Basophils % 0.3 % (0.0-0.8); Eosinophils # 0.1 10*3/uL (0.0-0.87); Hematocrit 35.3 VOL% (35.7-47.0); Immature Granulocytes Absolute 0.06 #; Lymphocytes # 0.9 10*3/uL (1.4-4.0); Lymphocytes % 14.3 % (21.3-54.2); Mean Corpuscular HGB Conc 31.2 GM/DL (32-36); Mean Corpuscular Volume 96.7 FL (87-102); Mean Platelet Volume 12.1 FL (9.6-12.0); Monocytes % 10.4 % (1.7-12.7); Red Blood Count 3.65 MC/CUMM (3.8-5.5); Red Cell Distribution Width 14.8 % (9.3-17.3); White Blood Count 6.2 T/CUMM (4-12)
[2021-07-22 05:29] LABS: Platelet Count 39 T/CUMM (130-400)
[2021-07-22 05:43] LABS: Platelet Estimate Decreased
[2021-07-22 05:54] LABS: Bilirubin,Total 0.8 MG/DL (0.20-1.00); Calcium 8.6 MG/DL (8.5-10.1); Potassium 4.6 MMOL/L (3.5-5.1)
[2021-07-22] MEDS: LOSARTAN 50 MG TABLET PO SCH (08:51)
[2021-07-22] MEDS: AMOXICILLIN 500 MG CAPSULE PO SCH ×2 (08:51→21:19)
[2021-07-22] MEDS: CHOLECALCIFEROL 5,000 UNIT TABLET PO SCH (08:51)
[2021-07-22] MEDS: SEVELAMER CARBONATE POWDER 2.4 GM PACK PO SCH ×3 (08:52→17:04)
[2021-07-22] MEDS: INSULIN LISPRO 100 UNIT/ML SUBCUT SCH ×4 (08:52→21:19)
[2021-07-22] MEDS: hydrALAZINE 25 MG TABLET PO SCH ×3 (08:52→21:19)
[2021-07-22] MEDS: BENZONATATE 100 MG CAPSULE PO SCH ×2 (08:52→21:19)
[2021-07-22] MEDS: amLODIPine 10 MG TABLET PO SCH (08:52)
[2021-07-22] MEDS: DOXYCYCLINE HYCLATE 100 MG CAPSULE PO SCH ×2 (08:52→21:19)
[2021-07-22] MEDS ORDERED: MAGNESIUM HYDROXIDE SUSP 30 ML UDCUP PO PRN (10:21)
[2021-07-22] MEDS ORDERED: SKIN HEALING OINT (AQUAPHOR) 50 GM TUBE TOP PRN (12:31)
[2021-07-22] MEDS: buPROPion 75 MG TABLET PO SCH (17:05)
[2021-07-22] MEDS ORDERED: BISACODYL 5 MG TABLET PO PRN (18:20)
[2021-07-22] MEDS: ASPIRIN EC 81 MG TABLET PO SCH ×2 (18:32)
[2021-07-22] MEDS ORDERED: traZODone 50 MG TABLET PO PRN (23:13)
[2021-07-23] MEDS: ALBUTEROL/IPRATROPIUM 3 ML NEB RESP TX SCH ×6 (03:31→23:35)
[2021-07-23 05:37] LABS: Basophils % 0.3 % (0.0-0.8); Eosinophils # 0.2 10*3/uL (0.0-0.87); Eosinophils % 2.3 % (0.00-10.9); Hematocrit 33.2 VOL% (35.7-47.0); Hemoglobin 10.3 GM/DL (12.0-16.0); Immature Granulocytes % 0.8 %; Immature Granulocytes Absolute 0.05 #; Lymphocytes # 0.8 10*3/uL (1.4-4.0); Lymphocytes % 12.6 % (21.3-54.2); Mean Corpuscular Volume 96.2 FL (87-102); Mean Platelet Volume 12.9 FL (9.6-12.0); Monocytes % 8.5 % (1.7-12.7); Neutrophils % 75.5 % (38.7-73.9); Red Blood Count 3.45 MC/CUMM (3.8-5.5); Red Cell Distribution Width 15.1 % (9.3-17.3); White Blood Count 6.5 T/CUMM (4-12)
[2021-07-23 05:44] LABS: Platelet Count 39 T/CUMM (130-400)
[2021-07-23 05:54] LABS: Albumin 2.7 G/DL (3.4-5.0); Bilirubin,Total 0.8 MG/DL (0.20-1.00); Calcium 8.3 MG/DL (8.5-10.1); Osmolality,Calculated 292.8 MOS/KG (273-304); Potassium 5.5 MMOL/L (3.5-5.1); Total Protein 5.8 G/DL (6.4-8.2)
[2021-07-23 05:57] LABS: Hypochromia Slight; Microcytosis Slight; Platelet Estimate Decreased
[2021-07-23] MEDS: INSULIN LISPRO 100 UNIT/ML SUBCUT SCH ×4 (08:24→21:49)
[2021-07-23] MEDS: CHOLECALCIFEROL 5,000 UNIT TABLET PO SCH (08:54)
[2021-07-23] MEDS: amLODIPine 10 MG TABLET PO SCH (08:54)
[2021-07-23] MEDS: LOSARTAN 50 MG TABLET PO SCH (08:54)
[2021-07-23] MEDS: AMOXICILLIN 500 MG CAPSULE PO SCH ×2 (08:54→21:00)
[2021-07-23] MEDS: BENZONATATE 100 MG CAPSULE PO SCH ×2 (08:54→21:01)
[2021-07-23] MEDS: DOXYCYCLINE HYCLATE 100 MG CAPSULE PO SCH ×2 (08:54→21:00)
[2021-07-23] MEDS: hydrALAZINE 25 MG TABLET PO SCH ×3 (08:54→21:01)
[2021-07-23] MEDS: predniSONE 20 MG TABLET PO SCH (09:03)
[2021-07-23] MEDS: SEVELAMER CARBONATE POWDER 2.4 GM PACK PO SCH ×3 (09:07→17:41)
[2021-07-23] MEDS ORDERED: hydrOXYzine HCL 10 MG TABLET PO PRN (13:52)
[2021-07-23] MEDS: BISACODYL 10 MG SUPP RECTAL SCH (17:22)
[2021-07-23] MEDS: buPROPion 75 MG TABLET PO SCH (17:28)
[2021-07-23] MEDS: ASPIRIN EC 81 MG TABLET PO SCH (21:01)
[2021-07-24 05:44] LABS: Basophils % 0.3 % (0.0-0.8); Eosinophils % 0.3 % (0.00-10.9); Hematocrit 33.9 VOL% (35.7-47.0); Hemoglobin 10.5 GM/DL (12.0-16.0); Immature Granulocytes % 1.1 %; Immature Granulocytes Absolute 0.08 #; Lymphocytes # 0.6 10*3/uL (1.4-4.0); Mean Corpuscular Volume 96.9 FL (87-102); Mean Platelet Volume 12.4 FL (9.6-12.0); Monocytes % 7.9 % (1.7-12.7); Neutrophils % 81.4 % (38.7-73.9); Red Cell Distribution Width 14.8 % (9.3-17.3)
[2021-07-24 05:49] LABS: Platelet Count 43 T/CUMM (130-400)
[2021-07-24 06:04] LABS: Platelet Estimate Decreased
[2021-07-24 06:07] LABS: Albumin 2.9 G/DL (3.4-5.0); Bilirubin,Total 1.2 MG/DL (0.20-1.00); Calcium 8.9 MG/DL (8.5-10.1); Potassium 5.1 MMOL/L (3.5-5.1); Total Protein 6.2 G/DL (6.4-8.2)
[2021-07-24] MEDS: ALBUTEROL/IPRATROPIUM 3 ML NEB RESP TX SCH ×2 (07:28→11:07)
[2021-07-24] MEDS: amLODIPine 10 MG TABLET PO SCH (09:58)
[2021-07-24] MEDS: DOXYCYCLINE HYCLATE 100 MG CAPSULE PO SCH (09:58)
[2021-07-24] MEDS: AMOXICILLIN 500 MG CAPSULE PO SCH (09:58)
[2021-07-24] MEDS: predniSONE 20 MG TABLET PO SCH (09:58)
[2021-07-24] MEDS: BENZONATATE 100 MG CAPSULE PO SCH (09:59)
[2021-07-24] MEDS: CHOLECALCIFEROL 5,000 UNIT TABLET PO SCH (09:59)
[2021-07-24] MEDS: LOSARTAN 50 MG TABLET PO SCH (09:59)
[2021-07-24] MEDS: hydrALAZINE 25 MG TABLET PO SCH (09:59)
[2021-07-24] MEDS: INSULIN LISPRO 100 UNIT/ML SUBCUT SCH ×2 (11:23→12:41)
[2021-07-24] MEDS: SEVELAMER CARBONATE POWDER 2.4 GM PACK PO SCH (11:23)
[2021-07-24] MEDS: BISACODYL 10 MG SUPP RECTAL SCH (11:23)
[2021-07-24 12:55] VITALS: BP 175/73
== END 2021-07-24 12:47 | disposition home or self-care (01) | DRG 193 ==
LOC: N.ED 20:12 → N.EDINP 07-17 05:54 → SUATTDRO 07-17 05:54 → N.3E 07-17 12:38
PROVIDERS: ADMIT Internal Medicine Geriatric Medicine; ATTEND Emergency Medicine

== ENCOUNTER 2022-06-03 12:16 | Inpatient (IN) ==
[2022-06-03 14:30] LABS: Basophils % 0.3 % (0.0-0.8); Eosinophils # 0.1 10*3/uL (0.0-0.87); Eosinophils % 0.5 % (0.00-10.9); Hematocrit 38.4 VOL% (35.7-47.0); Hemoglobin 12.3 GM/DL (12.0-16.0); Immature Granulocytes % 0.3 %; Immature Granulocytes Absolute 0.03 #; Lymphocytes # 0.8 10*3/uL (1.4-4.0); Lymphocytes % 8.4 % (21.3-54.2); Mean Corpuscular Volume 94.6 FL (87-102); Mean Platelet Volume 11.2 FL (9.6-12.0); Monocytes # 0.6 10*3/uL (0.11-0.8); Monocytes % 6.7 % (1.7-12.7); Neutrophils % 83.8 % (38.7-73.9); Platelet Count 113 T/CUMM (130-400); Red Blood Count 4.06 MC/CUMM (3.8-5.5); Red Cell Distribution Width 14.2 % (9.3-17.3); White Blood Count 9.6 T/CUMM (4-12)
[2022-06-03 14:46] LABS: Albumin 3.4 G/DL (3.4-5.0); Bilirubin,Total 0.5 MG/DL (0.20-1.00); Calcium 7.9 MG/DL (8.5-10.1); Osmolality,Calculated 285.4 MOS/KG (273-304); Potassium 5.7 MMOL/L (3.5-5.1); Total Protein 6.3 G/DL (6.4-8.2)
[2022-06-03] MEDS ORDERED: ONDANSETRON 4 MG/2 ML VIAL IV PRN (16:09)
[2022-06-03] MEDS ORDERED: GLUCAGON 1 MG VIAL IM PRN (16:09)
[2022-06-03] MEDS ORDERED: MELATONIN 3 MG TABLET PO PRN (16:20)
[2022-06-03] MEDS ORDERED: DEXTROSE 10% 250 ML BAG IV PRN (16:21)
[2022-06-03 17:30] LABS: PT Patient Result 11.4 SECS (10.1-12.1)
[2022-06-03] MEDS ORDERED: carvediloL 25 MG TABLET PO SCH (21:00)
[2022-06-03] MEDS ORDERED: cloNIDine 0.1 MG TABLET PO SCH (21:00)
[2022-06-03] MEDS: LANTHANUM 750 MG PO SCH (21:36)
[2022-06-03] MEDS: INSULIN LISPRO 100 UNIT/ML SUBCUT SCH ×2 (21:36→22:54)
[2022-06-03] MEDS: ASPIRIN EC 81 MG TABLET PO SCH (21:37)
[2022-06-03] MEDS: QUEtiapine 25 MG TABLET PO SCH (21:37)
[2022-06-03] MEDS: SODIUM ZIRCONIUM CYCLOSILICATE 10 GM PACK PO SCH (21:37)
[2022-06-04 05:33] LABS: Basophils % 0.5 % (0.0-0.8); Eosinophils # 0.1 10*3/uL (0.0-0.87); Hematocrit 33.7 VOL% (35.7-47.0); Hemoglobin 10.9 GM/DL (12.0-16.0); Immature Granulocytes % 0.3 %; Immature Granulocytes Absolute 0.02 #; Lymphocytes # 1.3 10*3/uL (1.4-4.0); Lymphocytes % 19.8 % (21.3-54.2); Mean Corpuscular HGB Conc 32.3 GM/DL (32-36); Mean Corpuscular Volume 94.4 FL (87-102); Mean Platelet Volume 11.5 FL (9.6-12.0); Monocytes # 0.7 10*3/uL (0.11-0.8); Neutrophils % 66.4 % (38.7-73.9); Platelet Count 101 T/CUMM (130-400); Red Blood Count 3.57 MC/CUMM (3.8-5.5); Red Cell Distribution Width 14.2 % (9.3-17.3); White Blood Count 6.5 T/CUMM (4-12)
[2022-06-04 05:46] LABS: Calcium 7.7 MG/DL (8.5-10.1); Potassium 4.6 MMOL/L (3.5-5.1)
[2022-06-04] MEDS: SODIUM ZIRCONIUM CYCLOSILICATE 10 GM PACK PO SCH (06:07)
[2022-06-04] MEDS ORDERED: amLODIPine 10 MG TABLET PO SCH (09:00)
[2022-06-04] MEDS ORDERED: amLODIPine 5 MG TABLET PO SCH (09:00)
[2022-06-04] MEDS: INSULIN LISPRO 100 UNIT/ML SUBCUT SCH ×4 (13:23→20:28)
[2022-06-04] MEDS: carvediloL 25 MG TABLET PO SCH ×2 (13:28→16:57)
[2022-06-04] MEDS: LANTHANUM 750 MG PO SCH ×2 (13:29→17:56)
[2022-06-04] MEDS: buPROPion 75 MG TABLET PO SCH (13:31)
[2022-06-04] MEDS: APIXABAN 2.5 MG TABLET PO SCH ×2 (14:28→20:28)
[2022-06-04] MEDS: CITALOPRAM 20 MG TABLET PO SCH (14:28)
[2022-06-04] MEDS: ATORVASTATIN 40 MG TABLET PO SCH (14:28)
[2022-06-04] MEDS: PANTOPRAZOLE 40 MG TABLET PO SCH (14:28)
[2022-06-04] MEDS: QUEtiapine 25 MG TABLET PO SCH (20:28)
[2022-06-04] MEDS: ASPIRIN EC 81 MG TABLET PO SCH (20:28)
[2022-06-05 03:56] LABS: Basophils % 0.4 % (0.0-0.8); Eosinophils # 0.1 10*3/uL (0.0-0.87); Eosinophils % 1.2 % (0.00-10.9); Hematocrit 37.6 VOL% (35.7-47.0); Hemoglobin 12.1 GM/DL (12.0-16.0); Immature Granulocytes % 0.5 %; Immature Granulocytes Absolute 0.04 #; Lymphocytes # 0.9 10*3/uL (1.4-4.0); Lymphocytes % 11.7 % (21.3-54.2); Mean Corpuscular HGB Conc 32.2 GM/DL (32-36); Mean Corpuscular Volume 96.2 FL (87-102); Mean Platelet Volume 11.1 FL (9.6-12.0); Monocytes # 0.6 10*3/uL (0.11-0.8); Monocytes % 7.7 % (1.7-12.7); Neutrophils % 78.5 % (38.7-73.9); Platelet Count 103 T/CUMM (130-400); Red Blood Count 3.91 MC/CUMM (3.8-5.5); Red Cell Distribution Width 14.2 % (9.3-17.3); White Blood Count 7.4 T/CUMM (4-12)
[2022-06-05 04:11] LABS: Calcium 8.2 MG/DL (8.5-10.1); Osmolality,Calculated 292.1 MOS/KG (273-304); Potassium 4.3 MMOL/L (3.5-5.1)
[2022-06-05 04:20] LABS: Platelet Estimate Decreased
[2022-06-05] MEDS: APIXABAN 2.5 MG TABLET PO SCH ×2 (09:17→20:03)
[2022-06-05] MEDS: INSULIN LISPRO 100 UNIT/ML SUBCUT SCH ×4 (09:18→21:39)
[2022-06-05] MEDS: carvediloL 25 MG TABLET PO SCH ×2 (09:19→17:04)
[2022-06-05] MEDS: LANTHANUM 750 MG PO SCH ×3 (10:37→17:05)
[2022-06-05] MEDS: ATORVASTATIN 40 MG TABLET PO SCH (10:38)
[2022-06-05] MEDS: CITALOPRAM 20 MG TABLET PO SCH (10:38)
[2022-06-05] MEDS: buPROPion 75 MG TABLET PO SCH (10:38)
[2022-06-05] MEDS: PANTOPRAZOLE 40 MG TABLET PO SCH (10:38)
[2022-06-05] MEDS ORDERED: HEPARIN 10,000 UNIT/10 ML VIAL IV PRN (13:53)
[2022-06-05] MEDS ORDERED: oxyCODONE/ACETAMINOPHEN 5-325 MG TABLET PO ONE (14:26)
[2022-06-05] MEDS ORDERED: IBUPROFEN 400 MG TABLET PO ONE (14:30)
[2022-06-05] MEDS: QUEtiapine 25 MG TABLET PO SCH (20:03)
[2022-06-05] MEDS: ASPIRIN EC 81 MG TABLET PO SCH (20:04)
[2022-06-05] MEDS: oxyCODONE/ACETAMINOPHEN 5-325 MG TABLET PO PRN (20:04)
[2022-06-06] MEDS: CITALOPRAM 20 MG TABLET PO SCH (08:54)
[2022-06-06] MEDS: APIXABAN 2.5 MG TABLET PO SCH ×2 (08:54→20:22)
[2022-06-06] MEDS: oxyCODONE/ACETAMINOPHEN 5-325 MG TABLET PO PRN ×3 (08:54→20:22)
[2022-06-06] MEDS: ATORVASTATIN 40 MG TABLET PO SCH (08:54)
[2022-06-06] MEDS: buPROPion 75 MG TABLET PO SCH (08:55)
[2022-06-06] MEDS: carvediloL 25 MG TABLET PO SCH ×2 (08:56→16:03)
[2022-06-06] MEDS: PANTOPRAZOLE 40 MG TABLET PO SCH (08:56)
[2022-06-06] MEDS: LANTHANUM 750 MG PO SCH ×3 (08:56→16:04)
[2022-06-06] MEDS: INSULIN LISPRO 100 UNIT/ML SUBCUT SCH ×4 (08:56→22:45)
[2022-06-06] MEDS: QUEtiapine 25 MG TABLET PO SCH (20:22)
[2022-06-06] MEDS: ASPIRIN EC 81 MG TABLET PO SCH (20:22)
[2022-06-07] MEDS: ATORVASTATIN 40 MG TABLET PO SCH (08:52)
[2022-06-07] MEDS: oxyCODONE/ACETAMINOPHEN 5-325 MG TABLET PO PRN (08:52)
[2022-06-07] MEDS: buPROPion 75 MG TABLET PO SCH (08:52)
[2022-06-07] MEDS: CITALOPRAM 20 MG TABLET PO SCH (08:53)
[2022-06-07] MEDS: carvediloL 25 MG TABLET PO SCH ×2 (08:53→08:55)
[2022-06-07] MEDS: PANTOPRAZOLE 40 MG TABLET PO SCH ×2 (08:53→08:55)
[2022-06-07] MEDS: APIXABAN 2.5 MG TABLET PO SCH (08:53)
[2022-06-07] MEDS: LANTHANUM 750 MG PO SCH ×2 (08:54→11:56)
[2022-06-07] MEDS: INSULIN LISPRO 100 UNIT/ML SUBCUT SCH ×2 (10:21→12:14)
[2022-06-07 11:40] VITALS: BP 128/78
== END 2022-06-07 13:00 | DRG 56 ==
LOC: EDBD → EDUNIT# → N.ED 12:16 → N.EDINP 12:16 → N.3E 19:59
PROVIDERS: ADMIT Internal Medicine; ATTEND Internal Medicine